=== PATIENT | male | born 1965 ===

== ENCOUNTER 2020-11-30 07:57 | Outpatient (CLI) | payer OTHER, SELFPAY ==
--- NOTE | 2020-11-30 08:00 | XR_ITS ---
WS: [id number] XR KUB [id number] REASON FOR EXAM: CALCULUS OF KIDNEY FINDINGS: Possible small calculus in the right kidney. No other intrarenal calculi identified. No calculi along the course of the ureters. No calculus overlying the bladder. Multiple vascular calcifications in the pelvis. No other significant abnormality No calculi along the course of the ureters identified. XR/XR KUB [id number] IMPRESSION: Possible small right renal calculus.
== END 2020-11-30 07:58 | disposition home or self-care (01) ==
LOC: RAD 07:58
PROVIDERS: PCP Emergency Medicine Emergency Medical Services; Visit Provider Urology
DX: N20.0 Calculus of kidney (principal)
CPT/HCPCS: 74018; 81003

== ENCOUNTER 2021-12-04 07:50 | Outpatient (CLI) | payer OTHER, SELFPAY ==
--- NOTE | 2021-12-04 07:59 | XR_ITS ---
WS: [id number] KUB, AP view, 12/04/2021 Clinical Data: Renal Stones Comparison: KUB, 11/30/2020 Findings: There may be a small right renal calcification. No abnormal intraabdominal masses are seen. There is no dilatated small bowel or evidence of obstruct ion. There are numerous pelvic calcifications. XR/XR KUB [id number] Impression: Possible right renal calculus.
== END 2021-12-04 07:51 | disposition home or self-care (01) ==
LOC: RAD 07:52
PROVIDERS: PCP Emergency Medicine Emergency Medical Services; Visit Provider Urology
DX: N20.0 Calculus of kidney (principal)
CPT/HCPCS: 74018; 99213

== ENCOUNTER → 2022-03-06 10:43 | Outpatient (BNVA) | payer OTHER, SELFPAY | PROVIDERS: PCP Emergency Medicine Emergency Medical Services; Visit Provider Registered Nurse | DX: Z02.1 Encounter for pre-employment examination (principal) | CPT/HCPCS: 80307 ==

== ENCOUNTER → 2024-01-07 13:19 | Outpatient (BNVA) | payer OTHER, SELFPAY | PROVIDERS: PCP Emergency Medicine Emergency Medical Services; Referring Provider Nurse Practitioner; Visit Provider Nurse Practitioner Family | DX: L82.1 Other seborrheic keratosis (principal); Q83.3 Accessory nipple; L60.3 Nail dystrophy; H02.64 Xanthelasma of left upper eyelid; H02.61 Xanthelasma of right upper eyelid; D18.01 Hemangioma of skin and subcutaneous tissue; L82.0 Inflamed seborrheic keratosis; L91.8 Other hypertrophic disorders of the skin | CPT/HCPCS: 17110; 99203 ==

== ENCOUNTER → 2024-06-09 14:02 | Outpatient (BNVA) | payer OTHER, SELFPAY | PROVIDERS: PCP Emergency Medicine Emergency Medical Services; Visit Provider Dermatology | DX: D48.5 Neoplasm of uncertain behavior of skin (principal) | CPT/HCPCS: 11104 ==

== ENCOUNTER → 2025-01-20 10:26 | Outpatient (BNVA) | payer OTHER, SELFPAY | PROVIDERS: PCP Emergency Medicine Emergency Medical Services; Visit Provider Nurse Practitioner Family | DX: L84 Corns and callosities (principal); Q83.3 Accessory nipple; L82.1 Other seborrheic keratosis; D18.01 Hemangioma of skin and subcutaneous tissue; L73.8 Other specified follicular disorders; H02.64 Xanthelasma of left upper eyelid; H02.61 Xanthelasma of right upper eyelid; D48.5 Neoplasm of uncertain behavior of skin | CPT/HCPCS: 11102; 99213 ==